=== PATIENT | male | born 1950 | race Hispanic/Latino ===

== ENCOUNTER 2022-11-28 11:44 | Outpatient (CLI) | payer MEDICARE, OTHER, SELFPAY ==
--- NOTE | 2022-11-28 12:42 | ECG_ITS ---
Measurements Intervals [place] Rate: 69 P: 28 VA: 177 QRS: -11 QRSD: 102 T: 16 QT: 371 QTc: 399 Interpretive Statements SINUS RHYTHM NORMAL ECG NO PREVIOUS ECG AVAILABLE FOR COMPARISON Electronically Signed On 11-28-2022 14:43:29 CDT by Michael Ch M.D.
[2022-11-28 13:12] LABS: Basophils Absolute Auto 0.1 K/mm3 (0.0-0.1); Basophils Percent Auto 0.5 % (0.2-1.2); Eosinophils Absolute Auto 0.4 K/mm3 (0-0.3); Eosinophils Percent Auto 4.2 % (0-4.4); Hemoglobin 14.4 g/dL (14.0-18.0); Immature Granulocyte Absolute 0.05 K/mm3 (0.00-0.031); Immature Granulocyte Percent A 0.5 % (0-0.5); Lymphocytes Absolute Auto 2.06 K/mm3 (0.9-3.2); Lymphocytes Percent Auto 20.6 % (18.3-44.2); Mean Corpuscular HGB Conc 33.5 g/dl (32-36); Mean Corpuscular Hemoglobin 32.4 pg (26-34); Mean Corpuscular Volume 96.8 fl (80-100); Mean Platelet Volume 11.3 fl (7.4-10.4); Monocytes Absolute Auto 0.7 K/mm3 (0.1-0.6); Monocytes Percent Auto 6.7 % (2.6-8.5); Neutrophils Absolute Auto 6.8 K/mm3 (1.3-6.7); Neutrophils Percent Auto 67.5 % (45.5-73.1); Platelet Count Result 243 k/mm3 (150-375); Red Blood Count 4.44 M/mm3 (4.6-6.20)
[2022-11-28 13:18] LABS: Albumin Level 4.5 g/dL (3.5-5.1)
[2022-11-28 13:22] LABS: Anion Gap 5 mmol/L (8-16); Blood Urea Nitrogen 21 mg/dL (9-20); Calcium 9.3 mg/dL (8.4-10.2); Carbon Dioxide 32 mmol/L (22-30); Chloride 100 mmol/L (98-107); Estimated Glomerular Filt Rate > 60; Glucose 103 mg/dL (65-110); Sodium 137 mmol/L (137-145)
[2022-11-28 13:25] LABS: Urine Cotinine NEGATIVE
[2022-11-28 13:31] LABS: Hemoglobin A1C 6.6 % (<5.7)
== END 2022-11-28 11:45 | disposition home or self-care (01) ==
LOC: ANHSURGERY 11:52
PROVIDERS: Anesthesiology; PCP Family Medicine; Visit Provider Orthopaedic Surgery
DX: Z01.818 Encounter for other preprocedural examination (principal); M17.11 Unilateral primary osteoarthritis, right knee; Z79.899 Other long term (current) drug therapy
CPT/HCPCS: 36415; 80048; 80307; 82040; 83036; 85025; 86850; 86900; 86901; 87081; 93005

== ENCOUNTER 2022-12-11 00:32 | Day surgery (SDC) | payer MEDICARE, OTHER, SELFPAY ==
--- NOTE | 2022-11-28 11:31 | PC.NURSE ---
PRE-OP INSTRUCTIONS, PLEASE READ CAREFULLY Report to the Outpatient Waiting Room, entrance under the green pavilion located off [facility], at time _1000_ on date _12/11/22_. Planned Procedure Time: _1200_. PACK A SMALL OVERNIGHT BAG AND LEAVE IN THE CAR ALONG WITH YOUR WALKER Time changes happen often and if your time is changed the preop area will call you the afternoon before. - You and your visitor will be asked to self-screen and do not enter if you have any COVID symptoms. - A mask is optional within the hospital at this time. -VISITING HOURS 8AM-8PM Patients may have clear liquids (water, carbonated beverages, clear teas, apple juice) until 3 hours prior to surgery (0900 AM) with a maximum of 20 ounces. - No food from midnight until time of surgery Take the following medications with a SIP of water the morning of surgery: _NONE_ DO NOT STOP ANY OF YOUR OTHER PRESCRIPTION MEDICATIONS PRIOR TO SURGERY ?EXCEPT THE FOLLOWING Medications to discontinue per DR. ISRAEL - _ASPIRIN 5 DAYS PRIOR TO SURGERY, Date to take last dose 12/05/22_ Please no make-up, nail bulgarian, hairspray, perfume, deodorant, or body powder the day of surgery. No jewelry (including any body piercings) or valuables the day of surgery, leave them at home. Please take a shower or bath the night before, or the morning of, surgery with an antibacterial soap. Wear comfortable, loose fitting clothing. - Jewelry must be removed prior to entering the operating room. Rings and piercings that are not removed may be cut off. - The hospital will not accept responsibility for valuables. - Please leave all valuables, including medications, at home the day of surgery. If you are going home after surgery, a licensed national flatbed truck driver must drive you home. - NO public transportation without another adult if you receive anesthesia. - We recommend that an adult stay with you for 24 hours following discharge. - We also recommend that you do not drive, make important decision, drink alcoholic beverages, or take any drugs that were not prescribed by your health care provider for at least 24 hours after your discharge time. Follow any additional instructions given to you from your surgeon. If you or anyone in your household have experienced Covid symptoms in the past week, please notify your surgeon or the nurse liaison at the phone number below for possible testing. Instructions given to _PATIENT_and asked if any additional questions and then verbalized understanding. Patient advised to call surgeon office or pre surgery nurse liaison [phone] if any additional questions.
[2022-11-28 12:09] VITALS: BP 154/86; PULSE 76; RESP 20; TEMP 36.8; O2SAT 99; BMI 31.6
--- NOTE | 2022-12-07 15:41 | PM.IMHP ---
H&P: HPI History of Present Illness Date/Time: 12/07/22 15:41 Chief Complaint: The patient is a 71-year-old male who sees Dr. Samson regarding his right knee. The patient has a chronic ongoing history of pain localized to the right knee this is due to advanced primary osteoarthritis. He has aching pain worse with activity somewhat relieved by rest he has problems standing or walking for long periods and is limited in his daily activities. Has trouble with twisting or turning squatting kneeling going up and down stairs has aching pain with startup pain rest pain and night pain despite conservative measures. He has had cortisone therapy and anti-inflammatories. X-rays show advanced primary osteoarthritis in both knees the right 1 is worse than left and is more symptomatic. At this point he has discussed further treatment options in detail with Dr. Samson he would now like to proceed with total knee arthroplasty. Review of Systems Review of Systems: Ten point review of systems otherwise negative PMFSH Social History Social History Smoking status: Never smoker Second hand tobacco smoke exposure: No Additional smoking assessment comments: PT DENIES ALL FORMS OF TOBACCO USE Alcohol intake: current Alcohol use details: MAYBE 1/MONTH Substance use: never Substance use type: does not use Living arrangements: with family Spiritual care concerns: No Meds Home Medications and Allergies Home Medications Medication Instructions Recorded Confirmed Type aspirin 81 mg tablet,delayed 81 mg PO DAILY 11/28/22 11/28/22 History release lisinopril 20 1 tablet QAM 11/28/22 11/28/22 History mg-hydrochlorothiazide 12.5 mg tablet pravastatin 20 mg tablet 20 mg HS 11/28/22 11/28/22 History Allergies Allergy/AdvReac Type Severity Reaction Status Date / Time No Known Allergies Allergy Verified 11/28/22 12:05 Exam Narrative: on exam the patient is noted be well-developed well-nourished male no acute distress alert oriented x3. Normal mood and affect. He is 5 ft 7 in tall 198 lb with a BMI 31. Hearing and vision are intact. Respiratory is good no distress. Pulse regular rate and rhythm. Abdomen benign. Extremities show the patient's right knee to be painful with manipulation and range of motion he has tenderness on the joint lines with crepitation through the arc of motion mild effusion swelling hips move well with negative Stinchfield negative DOUG. Range of motion is 5 to about 110? right knee. Neurovascular is intact skin is intact knee joint is otherwise stable strength is 5 5. Central nervous system within normal limits. Assessment and Plan Assessment and plan (1) Primary osteoarthritis of right knee: Code(s): M17.11 - Unilateral primary osteoarthritis, right knee Status: Acute Plan by x-ray and exam the patient is noted to have advanced primary osteoarthritis right knee joint. The patient has discussed risks benefits limitations and alternatives to surgery in great detail Dr. Samson he is now ready to proceed with a right total knee arthroplasty. The patient is scheduled to undergo surgery Sunday December 11, 2022 at [facility] with Dr. Samson. The patient voiced understanding and agrees with above plan.
[2022-12-11] VITALS (12 sets, daily range): BP systolic 120–151; BP diastolic 61–94; PULSE 76–90; RESP 16–20; TEMP 36.4–37.2; O2SAT 94–99
--- NOTE | ~2022-12-11 | XR_ITS ---
EXAMINATION: [id number] DATE: 12/11/2022 14:27 INDICATION: Right knee arthroplasty. Postop. TECHNIQUE: 2 views of right knee were obtained. COMPARISON: None. FINDINGS: There is a total right knee arthroplasty with patellar resurfacing in near-anatomic alignme nt. No fracture. There is gas in the knee joint and soft tissues, consistent with recent surgery. Ant erior skin ginette are noted. IMPRESSION: 1. Total right knee arthroplasty in near-anatomic alignment. Reviewed, dictated and finalized at location A.
[2022-12-11] MEDS: LACTATED RINGERS 1,000 ML 30 ML IV CONT ×2 (10:40→14:17)
[2022-12-11] MEDS: ACETAMINOPHEN 500 MG TABLET 1000 MG PO (10:46)
[2022-12-11] MEDS: TRANEXAMIC ACID 1,000MG/ISO100 1,000 MG/100 ML BAG 200 MG IVPB (10:50)
--- NOTE | 2022-12-11 11:07 | WPDANESEPPF ---
Anes - Initial Pre Proc Eval Procedure: Operation Date: 12/11/22 12:00 Proposed Procedures p Right Total Knee Arthroplasty - Joey Samson MD Date/Time: 12/11/22 11:07 Surgeon: Joey Samson MD Pre Op Diagnosis: O A Right Knee Patient Data Age: 71 Gender: M Height: 1.7 m Weight: 90.7 kg Last Vital Signs Temp 37.2 C 12/11/22 10:20 Pulse 90 12/11/22 10:20 Resp 16 12/11/22 10:20 BP 151/94 H 12/11/22 10:20 Pulse Ox 97 12/11/22 10:20 O2 Del Method Room Air 12/11/22 10:20 Allergies Allergy/AdvReac Type Severity Reaction Status Date / Time No Known Allergies Allergy Verified 12/11/22 10:15 Home Medications Medication Instructions Recorded Confirmed Type aspirin 81 mg tablet,delayed 81 mg PO DAILY 11/28/22 12/11/22 History release lisinopril 20 1 tablet QAM 11/28/22 12/11/22 History mg-hydrochlorothiazide 12.5 mg tablet pravastatin 20 mg tablet 20 mg HS 11/28/22 12/11/22 History Patient hx anesthesia problems: none Family hx anesthesia problems: none Results Review: All pre-operative results and documents have been reviewed as part of the pre-operative evaluation. [facility] Past Medical History Medical History (Updated 12/11/22 @ 11:08 by Joselo Randall MD) HTN (hypertension) Hyperlipidemia Obesity Social History Social History Smoking status: Never smoker Second hand tobacco smoke exposure: No Additional smoking assessment comments: PT DENIES ALL FORMS OF TOBACCO USE Alcohol intake: current Alcohol use details: MAYBE 1/MONTH Substance use: never Substance use type: does not use Living arrangements: with family Spiritual care concerns: No Anes - Eval Final PreProcedure Day of Procedure 12/11/22 11:07 Patient weight: obese Heart: regular rate and rhythm Lungs: clear to auscultation Airway: Mallampati scale class II Neurological: alert and oriented Last oral intake: >/= 8 hours ASA classification: III Emergent: no Anesthetic plan: proceed Anesthesia type and monitoring: general LMA and standard monitoring Results Review: All pre-operative results and documents have been reviewed as part of the pre-operative evaluation. Informed Consent: The patient's anesthetic plan and its attendant risks and benefits were discussed with the patient/family/POA. Questions were solicited and answers provided to the satisfaction of the patient/family/POA.
--- NOTE | 2022-12-11 11:43 | WPDHPUPDATE1 ---
History and Physical Update Update Date/Time: 12/11/22 11:43 History and Physical has been reviewed, including an updated exam of the patient. There are NO changes in the patient's condition. Risks, benefits, and alternatives have been discussed and questions answered. Patient agrees to proceed with procedure.
--- NOTE | 2022-12-11 11:59 | WPDANESPNB ---
Anes - Peripheral Nerve Block Date/Time: 12/11/22 11:59 I have discussed with the patient/family/POA the placement of a peripheral nerve block for post-operative pain management, including associated risks, benefits, complications, and side effects. Alternative methods of post-operative analgesia were detailed. Questions were solicited and answers provided to the satisfaction of the patient/family/POA. Time-Out: A pre-procedural Time-Out was completed immediately before starting the procedure and confirmed: Patient Identification, Site, Procedure, Patient Position and the Availability of Requisite Equipment. Clinical Indications: Acute post-operative pain management requested by the operative surgeon. Nerve Block Insertion Note Anes-nerve block: femoral right Patient position: supine Skin prep: chlorhexidine Needle: 22 gauge, stimulating, insulated echogenic needle. Needle length: 50 mm Technique: nerve stimulation lost at (mA) (0.28) Injectate: bupivacaine 0.5% with epi 5 mcg/ml (20 cc no epi) Observations: tolerated well Complications: none Procedure start time:: 1050 Procedure end time:: 1054
[2022-12-11] MEDS: ceFAZolin 2 GM/D5W 50 ML 2 GM/50 ML BAG IVPB ×2 (12:04→20:06)
--- NOTE | 2022-12-11 13:37 | W.PM.PROC2 ---
Procedure Note - Detailed Date of Procedure 12/11/22 Pre-op Diagnosis O A Right Knee Post-op Diagnosis Same Procedure Performed RIGHT total knee arthroplasty Surgeon Joey Samson MD Global Engineering Manager Rigoberto Shabazz Anesthesia General Description of Procedure The patient was brought to the operating room #3. General anesthetic was administered. Placed on the operating table and sterilely prepped and draped in usual manner. A longitudinal incision was made. Tourniquet inflated to 300 mmHg for a total of 48 minutes. Dissection carried down to the fascia. Medial parapatellar incision was made and the patella subluxated laterally. Patella cut from [23] to 16 mm and sized for a 34 mm button. The tibia cut perpendicular to the long axis and femur cut in 5 degrees of valgus, a 65mm femur trialed. 67 tibia was felt to fit the best. The soft tissue balanced, hemostasis obtained. All [address], 67 tibia, 65 femur, 34 mm patella, and 10 mm poly. Motion was 0-125 degrees with good stablility and flexion and extension. The wound was closed with #2 vicryl, 2-0 Vicryl and ginette. Estimated Blood Loss 200 Drains No Packing No Pathology None sent Complications No immediate complications Condition Stable Disposition PACU
--- NOTE | 2022-12-11 14:32 | PM.OP ---
Procedure Note - Brief Procedure Note - Brief Date of procedure: 12/11/22 Preop diagnosis advanced primary osteoarthritis Right Knee postop diagnosis same status post right total knee arthroplasty Procedure performed: right total knee arthroplasty Surgeon: surgeon Joey Samson m.d. speech language pathology assistant Rigoberto Shabazz PA-C Description of procedure: patient was taken the operating room on December 11, 2022 for total knee arthroplasty right knee. I entered the room at 12:15 p.m. at that point I assisted with positioning the patient on the operating table I then placed a tourniquet was applied on the right thigh well-padded underneath. Then I assisted with a sterile prep and drape of the right lower extremity. Dr. Cates in entered the room and commence with a right total knee arthroplasty throughout the procedure I assisted with hemostasis with suction and cautery, wound retraction, positioning of the leg, implant placement and excess cement removal once this mildly dry. Once Dr. Samson completed his portion of the procedure I thoroughly irrigated the wound made sure hemostasis was obtained and I placed Surgicel powder throughout the wound. After that I began closure the deep capsule the right knee with 2. Vicryl 2. Quill. I then irrigated the wound again placed more Surgicel powder and then began with closure of the superficial layers include 2 0 Vicryl 0 Quill and ginette superficially. Then placed a sterile dressing with Xeroform gauze by 4 gauze and soft roll gauze followed by 6 inch Dax wrap from the toes to the thigh. Patient did well there was no intraoperative complications he was stable for discharge to recovery room. And then assisted with transfer the patient the operating table to the stretcher and he was discharged to recovery room expected to spend the night and be discharged the following day if in stable condition. I exited the room at 2:15 p.m. total blood loss was approximately 100 cc.
--- NOTE | 2022-12-11 15:50 | ADMGEN ---
This patient, Drew Obregon, was admitted to Medical Room 250-01. Patient/family oriented to hospital policies and general routines including ID bracelet, bed and alarms, visiting hours, pain management, procedures, bathroom and other care routines, personal items, smoking policy, room service/diet, and visiting hours. Information on how to activate the Rapid Response Team has been discussed. Patient/Family are encouraged to report perceived risks to care and to ask questions if they do not understand what they are told or what they should do.
[2022-12-11] MEDS: HYDROcodone/acetaminophen (*CRX) 5-325 MG TABLET 1 TAB PO (16:14)
[2022-12-11] MEDS: CELECOXIB 200 MG CAPSULE PO (16:15)
[2022-12-11] MEDS: SENNA/DOCUSATE SODIUM TABLET 2 TAB PO (16:15)
[2022-12-11] MEDS: SODIUM CHLORIDE 0.9% IV 1,000 ML 125 ML IV CONT (16:16)
[2022-12-11] MEDS: PRAVASTATIN SODIUM 20 MG TABLET PO (20:06)
[2022-12-11] MEDS: RIVAROXABAN 10 MG TABLET PO (20:07)
[2022-12-11 20:27] LABS: Glucose Point of Care 133 mg/dl (65-105)
--- NOTE | 2022-12-11 21:35 | PM.IMCN ---
Assessment and Plan Assessment and plan (1) S/P total knee arthroplasty: Code(s): Z96.659 - Presence of unspecified artificial knee joint Status: Acute Assessment and Plan: Right total knee arthroplasty per Dr. Samson PT OT per Dr. Samson Postop care per Dr. Samson DVT prophylaxis per Dr. Samson. The patient has Scds and Xarelto. Energy [address] Samson. The patient is on tramadol, and [place] (2) HTN (hypertension): Code(s): I10 - Essential (primary) hypertension Status: Acute Assessment and Plan: Restart lisinopril and hydrochlorothiazide. (3) Hyperlipidemia: Code(s): E78.5 - Hyperlipidemia, unspecified Status: Acute Assessment and Plan: Continue with pravastatin HPI Data of Consult Consult date: 12/11/22 Requesting Physician: Joey Samson MD Primary Care Provider: Andra HamptonMD Consult Narrative Narrative: Drew Obregon is a 71 year old male who has advanced primary osteoarthritis to the right knee. The patient has chronic ongoing history of pain localized to the right knee due to advanced primary osteoarthritis. The patient has worsening pain with activity and is somewhat relieved by rest. He has pain with standing and walking for long periods of time. He has limited activities due to the discomfort. The x-rays did show advanced primary osteoarthritis in both knees the right 1 is worse than left and is more symptomatic. The patient underwent a right total knee arthroplasty per Dr. Samson today. Please see operative note. Estimated blood loss was 200 cc. No immediate complications reviewed. The patient has no complaints at this time. The hospitalist was asked to consult on this patient. Services 12/11/2022. Review of Systems Review of Systems: All systems reviewed & are unremarkable except as noted in HPI and below Constitutional: Constitutional: Reports as per HPI and Reports no additional constitutional complaints Eyes: Eyes: Reports as per HPI and Reports no additional eye complaints ENT: Reports system reviewed and no additional complaints, except as documented and Reports Normal hearing present Cardiovascular: Cardiovascular: Reports no additional cardiovascular complaints Respiratory: Respiratory: Reports no additional respiratory complaints and Reports no additional respiratory complaints Gastrointestinal: Gastrointestinal: Reports as per HPI and Reports no additional gastrointestinal complaints Musculoskeletal: Musculoskeletal: Reports no additional musculoskeletal complaints Integumentary/Breasts: Skin/Breast: Reports system reviewed and no additional complaints, except as docu and Reports as per HPI Neurologic: Reports system reviewed and no additional complaints, except as documented, Reports as per HPI and Reports Normal hearing present Psychiatric: Psychiatric: Reports no additional psychiatric complaints and Reports as per HPI Endocrine: Endocrine: Reports no additional endocrine complaints Hematologic/Lymphatic: Hematologic/Lymphatic: Reports no additional hematologic/lymphatic complaints Allergic/Immunologic: Allergic/Immunologic: Reports no additional allergic/immunologic complaints PMFSH Past Medical History Medical History (Updated 12/11/22 @ 23:02 by Jodee Gamboa NP) HTN (hypertension) Hyperlipidemia Obesity Surgical History Surgical History (Updated 12/11/22 @ 22:55 by Jodee Gamboa NP) H/O colonoscopy with polypectomy S/P total knee arthroplasty right total knee per [place] Family History Family History (Updated 12/11/22 @ 22:53 by Jodee Gamboa NP) Unknown No problems noted. Social History Social History (Updated 12/11/22 @ 22:53 by Jodee Gamboa NP) Social History: He lives with his and has 3 children. 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 He is a lifelong nonsmoker. Code status full code Smoking status:
[2022-12-12] VITALS: PULSE 87
[2022-12-12 02:57] VITALS: BP 144/72; PULSE 83; RESP 20; TEMP 36.9; O2SAT 97
[2022-12-12] MEDS: ceFAZolin 2 GM/D5W 50 ML 2 GM/50 ML BAG IVPB ×2 (03:33→11:52)
[2022-12-12 04:00] VITALS: PULSE 82
[2022-12-12 05:46] LABS: Basophils Percent Auto 0.3 % (0.2-1.2); Eosinophils Absolute Auto 0.3 K/mm3 (0-0.3); Eosinophils Percent Auto 2.6 % (0-4.4); Hematocrit 35.7 % (42.0-52.0); Hemoglobin 11.7 g/dL (14.0-18.0); Immature Granulocyte Absolute 0.04 K/mm3 (0.00-0.031); Immature Granulocyte Percent A 0.4 % (0-0.5); Lymphocytes Absolute Auto 1.09 K/mm3 (0.9-3.2); Lymphocytes Percent Auto 11.1 % (18.3-44.2); Mean Corpuscular HGB Conc 32.8 g/dl (32-36); Mean Corpuscular Hemoglobin 32.2 pg (26-34); Mean Corpuscular Volume 98.3 fl (80-100); Monocytes Absolute Auto 0.9 K/mm3 (0.1-0.6); Monocytes Percent Auto 9.2 % (2.6-8.5); Neutrophils Absolute Auto 7.5 K/mm3 (1.3-6.7); Neutrophils Percent Auto 76.4 % (45.5-73.1); Platelet Count Result 182 k/mm3 (150-375); Red Blood Count 3.63 M/mm3 (4.6-6.20); White Blood Count 9.8 K/mm3 (4.5-10.0)
[2022-12-12 06:02] LABS: Anion Gap 4 mmol/L (8-16); Blood Urea Nitrogen 20 mg/dL (9-20); Calcium 8.1 mg/dL (8.4-10.2); Carbon Dioxide 28 mmol/L (22-30); Chloride 102 mmol/L (98-107); Estimated CRCL calculation 73 ml/min; Estimated Glomerular Filt Rate > 60; Glucose 160 mg/dL (65-110); Potassium 3.8 mmol/L (3.4-5.0); Sodium 134 mmol/L (137-145)
--- NOTE | 2022-12-12 07:07 | P.PNAN_ITS ---
Anes - Prog Note Post-Op Date/Time: 12/12/22 07:07 Cardiovascular status: normal Respiratory status: normal Airway patency: baseline Mental status: baseline Post-Op hydration status: normal Vital Signs: Last Vital Signs Temp 98.4 F 12/12/22 02:57 Pulse 82 12/12/22 04:00 Resp 20 12/12/22 02:57 BP 144/72 H 12/12/22 02:57 Pulse Ox 97 12/12/22 02:57 O2 Del Method Room Air 12/11/22 15:20 O2 Flow Rate 8 12/11/22 14:35 Pain Score (VAS): 3 I/O: Intake & Output 12/11/22 12/11/22 12/12/22 15:59 23:59 07:59 Intake Total 1850 370 390 Balance 1850 370 390 Laboratory Tests 12/12/22 05:34 12/12/22 05:34 12/11/22 12/12/22 20:16 05:34 WBC 9.8 RBC 3.63 L Hgb 11.7 L Hct 35.7 L MCV 98.3 MCH 32.2 MCHC 32.8 RDW 13.0 Plt Count 182 MPV 11.0 H Immature Gran % (Auto) 0.4 Neut % (Auto) 76.4 H Lymph % (Auto) 11.1 L [place] % (Auto) 9.2 H Eos % (Auto) 2.6 Baso % (Auto) 0.3 Lymph # (Auto) 1.09 [place] # (Auto) 0.9 H Eos # (Auto) 0.3 Baso # (Auto) 0.0 Abs Immat Gran (auto) 0.04 H Absolute Neuts (auto) 7.5 H Absolute Nucleated RBC 0.0 Nucleated RBC % 0.0 Sodium 134 L Potassium 3.8 Chloride 102 Carbon Dioxide 28 Anion Gap 4 L BUN 20 Creatinine 0.90 Estim Creat Clear Calc 73 Estimated GFR > 60 Glucose 160 H POC Capillary Glucose 133 H Calcium 8.1 L Post-procedural complaints: none Patient Feedback: Patient satisfied with anesthetic care.
[2022-12-12 08:00] VITALS: PULSE 84
[2022-12-12] MEDS: CELECOXIB 200 MG CAPSULE PO (08:28)
[2022-12-12] MEDS: lisinopriL 20 MG TABLET PO (08:28)
[2022-12-12] MEDS: ASPIRIN 81 MG ENTERIC TABLET PO (08:28)
[2022-12-12] MEDS: SENNA/DOCUSATE SODIUM TABLET 2 TAB PO (08:28)
[2022-12-12] MEDS: hydroCHLOROthiazide 12.5 MG CAPSULE PO (08:29)
[2022-12-12] MEDS: HYDROcodone/acetaminophen (*CRX) 7.5-325 MG TABLET 1 TAB PO (08:29)
[2022-12-12] MEDS: polyethylene glycoL 3350 17 GM POWD.PACK PO (08:36)
[2022-12-12 09:59] VITALS: BP 115/69; PULSE 88; RESP 16; TEMP 36.7; O2SAT 93
--- NOTE | 2022-12-12 11:09 | PM.DS ---
DS: Admitting Diagnosis Discharge Date December 12, 2022 Admitting Diagnosis admitting diagnosis-primary osteoarthritis right knee, discharge diagnosis same status post right total knee arthroplasty DS: Discharge Diagnosis Discharge Diagnosis (1) S/P total knee arthroplasty: Code(s): Z96.659 - Presence of unspecified artificial knee joint Status: Acute Plan patient doing well postop day 1 discharge home stable condition see discharge orders DS: Summary Hospital Course Hospital Course: patient was admitted overnight on December 11, 2022 status post right total knee arthroplasty. Postop day 1 the patient was stable good condition up ambulating independently easily walking without assistance using a walker for balance and support. Vital signs are stable he is afebrile neurovascular the patient is intact wound has minimal serous bloody drainage calves are benign. He is alert oriented x3. Pain is well controlled tolerating p.o. well. Patient is deemed stable for discharge to home. The patient will follow-up 2 weeks postop for staple removal and wound recheck he will change the dressing daily keep an eye on any drainage or bleeding call immediately for any problems difficulties or questions. The patient is discharged on Xarelto 10 mg daily or postop course of 10 days then will proceed with aspirin per routine home meds. He was also discharged with [place] 7.5 mg every 6 hours p.r.n. severe pain. Patient will start outpatient physical therapy for total knee protocol weightbearing as tolerated starting at the end of this week. The patient is on a general diet discharged home good condition. Patient will call the office immediately for any problems difficulties or questions he voiced understanding and agrees with the above plan. Time Spent with Patient Time attestation: Total time spent providing and/or coordinating discharge services: 15 minutes Exam Narrative: vital signs stable afebrile neurovascular patient is intact wound is clean and as minimal bloody serous drainage proximally no active bleeding. Calves are benign. Ambulating independently easily pain well controlled. Alert oriented x3. Normal mood and affect. Tolerating p.o. well. No postoperative complications noted. DS: Data Data Completed and Pending Labs on day of discharge: Labs from last 24 hours 12/12/22 12/11/22 05:34 20:16 WBC 9.8 RBC 3.63 L Hgb 11.7 L Hct 35.7 L MCV 98.3 MCH 32.2 MCHC 32.8 RDW 13.0 Plt Count 182 MPV 11.0 H Immature Gran % (Auto) 0.4 Neut % (Auto) 76.4 H Lymph % (Auto) 11.1 L [place] % (Auto) 9.2 H Eos % (Auto) 2.6 Baso % (Auto) 0.3 Lymph # (Auto) 1.09 [place] # (Auto) 0.9 H Eos # (Auto) 0.3 Baso # (Auto) 0.0 Abs Immat Gran (auto) 0.04 H Absolute Neuts (auto) 7.5 H Absolute Nucleated RBC 0.0 Nucleated RBC % 0.0 Sodium 134 L Potassium 3.8 Chloride 102 Carbon Dioxide 28 Anion Gap 4 L BUN 20 Creatinine 0.90 Estim Creat Clear Calc 73 Estimated GFR > 60 Glucose 160 H POC Capillary Glucose 133 H Calcium 8.1 L Procedures/Treatments: Right total knee arthroplasty Discharge Plan Discharge Patient Disposition: Home, Self-Care Discharge Instructions: Joey Samson M.D [facility], [address] [address] POST-OPERATIVE DISCHARGE INSTRUCTIONS TOTAL KNEE ARTHROPLASTY 1. When resting, lie on back with leg elevated above hear to minimize swelling. Significant swelling could indicate a blood clot and if this occurs call the office (or go to the ER) to have a venous ultrasound. 2. Do exercise 5 times a day. 3. Do not sit with leg down except for meals. 4. Wound Care: Nursing will give additional dressings at discharge. Patient to change dressing at home 1 week from surgery, then maintain until seen in office. 5. May shower with dressing in place. 6. Follow w
--- NOTE | 2022-12-12 11:15 | PM.IMPN ---
Progress Note: A&P Assessment and Plan (1) S/P total knee arthroplasty: Code(s): Z96.659 - Presence of unspecified artificial knee joint Status: Acute Assessment and Plan: POD1 Right total knee arthroplasty per Dr. Samson PT OT per Dr. Samson Postop care per Dr. Samson DVT prophylaxis per Dr. Samson. The patient has Scds and Xarelto. tramadol, and Norcom for pain (2) HTN (hypertension): Code(s): I10 - Essential (primary) hypertension Status: Acute Assessment and Plan: BP stable 115/69 Restart lisinopril and hydrochlorothiazide. (3) Hyperlipidemia: Code(s): E78.5 - Hyperlipidemia, unspecified Status: Acute Assessment and Plan: Continue with pravastatin Time Spent With Patient Time: 43 minutes Time with patient: Greater than 35 minutes Subjective Date/time seen: 12/12/22 1115 Interval history: Patient is sitting in the chair. He is doing ok at this time. His pain is controlled. and stated that the left side was slightly numb. Labs and vital signs are stable. He denies any chest pain, shortness of breath, nausea, vomiting, diarrhea, or constipation. He is stable for discharge per hospitalist. Review of Systems Review of Systems: All systems reviewed & are unremarkable except as noted in HPI and below Exam Narrative: General:? well-nourished, well-appearing 71-year-old female,? sitting up in bed, comfortable, NARD Neuro: awake, alert and oriented x4, speech clear, no focal neuro deficits noted HEENMT:? normocephalic, atraumatic, EOMI, sclerae anicteric, moist oral mucosa Respiratory:? Clear to auscultation bilaterally without crackles, rhonchi or wheezes, nonlabored breathing Cardio: regular rate, regular rhythm with S1-S2 Abdomen:? nondistended, normoactive bowel sounds, soft, nontender to palpation Extremities: no edema, erythema, or tenderness to palpation, DP pulses 2+ bilaterally, slight bloody drainage noted on the dressing Skin: no rashes or lesions, warm and dry Psych: appropriate mood and affect, judgment and insight intact Objective Data Vital Signs Vital Signs: Vital Signs - 24 hr 12/11/22 14:20 12/11/22 14:35 12/11/22 14:50 Temperature 98.1 F Pulse Rate 78 80 78 Respiratory Rate 16 18 16 Blood Pressure 132/77 125/74 135/69 Pulse Oximetry 95 99 94 Oxygen Delivery Simple Face Mask Simple Face Mask Room Air Oxygen Flow Rate 8 8 12/11/22 15:05 12/11/22 15:20 12/11/22 15:45 Temperature 97.7 F Pulse Rate 81 79 76 Respiratory Rate 20 16 16 Blood Pressure 130/77 120/76 145/65 H Pulse Oximetry 94 96 99 Oxygen Delivery Room Air Room Air Oxygen Flow Rate 12/11/22 16:00 12/11/22 16:30 12/11/22 18:45 Temperature 97.6 F 97.7 F 98.1 F Pulse Rate 78 78 87 Respiratory Rate 16 16 19 Blood Pressure 143/68 H 137/73 147/82 H Pulse Oximetry 99 98 98 Oxygen Delivery Oxygen Flow Rate 12/11/22 20:28 12/11/22 20:00 12/12/22 00:00 Temperature 98.1 F Pulse Rate 82 84 87 Respiratory Rate 16 Blood Pressure 137/61 Pulse Oximetry 95 Oxygen Delivery Oxygen Flow Rate 12/12/22 02:57 12/12/22 04:00 12/12/22 08:10 Temperature 98.4 F Pulse Rate 83 82 Respiratory Rate 20 Blood Pressure 144/72 H Pulse Oximetry 97 Oxygen Delivery Room Air Oxygen Flow Rate 12/12/22 08:41 12/12/22 09:59 12/12/22 08:00 Temperature 98.1 F Pulse Rate 88 84 Respiratory Rate 16 Blood Pressure 115/69 Pulse Oximetry 93 Oxygen Delivery Room Air Oxygen Flow Rate 12/12/22 08:00 Temperature Pulse Rate Respiratory Rate Blood Pressure Pulse Oximetry Oxygen Delivery Room Air Oxygen Flow Rate Intake/Output Intake/Output: Intake & Output 12/09/22 12/10/22 12/11/22 12/12/22 23:59 23:59 23:59 23:59 Intake Total 2220 750 Balance 2220 750 Meds/Results Medications: Active Medications Generic Name Dose Route Start Last Admin Trade Name Freq PRN Reason Stop
== END 2022-12-12 12:35 | disposition home or self-care (01) ==
LOC: ANHSURGERY 13:47 → ANH2MED 15:37
PROVIDERS: PCP Family Medicine; Visit Provider Orthopaedic Surgery
PROC: (CPT 27447; principal; 2022-12-11 12:00)
DX: M17.11 Unilateral primary osteoarthritis, right knee (principal); G89.18 Other acute postprocedural pain; I10 Essential (primary) hypertension; E78.5 Hyperlipidemia, unspecified; Z79.82 Long term (current) use of aspirin; E66.9 Obesity, unspecified; Z68.31 Body mass index [BMI] 31.0-31.9, adult
CPT/HCPCS: 27447; 64447; 36415; 73560; 80048; 82948; 85025; 97110; 97161; 97165; 97535; A9270; C1713; C1776; J0690; J1885; J2250; J2270; J2405; J2704; J2795; J3010; J3370; J7030; J7120